=== PATIENT | male | born 1935 | race Caucasian/White ===

== ENCOUNTER 2017-04-29 22:34 | Inpatient (IN) | payer MEDICARE, OTHER ==
[~2017-04-29] VITALS: Ht 157.5 cm; Wt 58.5 kg
[2017-04-29] MEDS ORDERED: TELM40TA2 PO (22:47)
[2017-04-29] MEDS ORDERED: CLOP75TA15 PO (22:47)
[2017-04-29] MEDS ORDERED: ESOM40CA PO (22:47)
[2017-04-29] MEDS ORDERED: TAMS0.4C34 PO (22:47)
[2017-04-29] MEDS ORDERED: RANI300C PO (22:47)
[2017-04-29] MEDS ORDERED: PREG50CA PO (22:47)
[2017-04-29] MEDS ORDERED: ASPI-605 PO (22:47)
[2017-04-29] MEDS ORDERED: AMYL1CAP58 PO (22:47)
[2017-04-29] MEDS ORDERED: FINA5TAB11 PO (22:47)
[2017-04-29] MEDS ORDERED: CELE100C PO (22:47)
[2017-04-29] MEDS ORDERED: LEVO50TA PO (22:47)
[2017-04-29] MEDS ORDERED: METO-357 PO (22:47)
[2017-04-29 23:00] LABS: ABG BASE EXCESS 1.9 mmol/L; ABG OXYGEN SATURATION 86.9 % (92.0-98.5); ABG PCO2 28.2 mmHg (35.0-45.0); ABG PH 7.537 (7.350-7.450); ABG PO2 46.5 mmHg (75.0-100.0); COHb 0.8 % (0.5-1.5); MetHb 0.5 % (0.0-1.5); O2Hb 85.8 % (94.0-97.0); SITE, ABG LEFT ARM; VENT MODE, BG RA
[2017-04-29] MEDS ORDERED: LEVOFLOXACIN 750 MG /D5W 150ML 150 ML IV ONE ×2 (23:00→23:09)
[2017-04-29] MEDS ORDERED: IV NS 0.9% 500 ML BAG IV ONE (23:00)
[2017-04-29 23:37] LABS: BASOPHILS % (AUTO) 0.2 % (0.0-2.0); EOSINOPHILS # (AUTO) 0.1 /CMM (0.0-0.7); EOSINOPHILS % (AUTO) 1.5 % (0.0-6.0); HEMATOCRIT 39 % (39-51); LYMPHOCYTES # (AUTO) 0.7 /CMM (0.8-4.8); LYMPHOCYTES % (AUTO) 7.4 % (20.0-44.0); MEAN CORPUSCULAR HEMOGLOBIN 31 PG (26.0-33.0); MEAN CORPUSCULAR HGB CONC 33 g/dl (31.0-36.0); MEAN CORPUSCULAR VOLUME 93 fL (80-96); MONOCYTES # (AUTO) 0.8 /CMM (0.1-1.30); MONOCYTES % (AUTO) 8.6 % (2.0-12.0); NEUTROPHILS # (AUTO) 7.4 /CMM (1.8-8.9); NEUTROPHILS % (AUTO) 82.3 % (43.0-81.0); PLATELET COUNT (AUTO) 247 /CMM (150-450); RDW COEFFICIENT OF VARIATION 14.5 (11.5-15.0); RED BLOOD CELL COUNT(AUTO) 4.18 MIL/uL (4.5-6.0)
[2017-04-29 23:47] LABS: CALCIUM, SERUM 8.7 mg/dL (8.5-10.1); CARBON DIOXIDE 26 mmol/L (21-32); CHLORIDE 106 mmol/L (98-107); CREATININE 1.4 mg/dL (0.6-1.3); GLUCOSE 114 mg/dL (74-106); POTASSIUM 3.4 mmol/L (3.5-5.1); SODIUM SERUM 141 mmol/L (136-145); UREA NITROGEN, BLOOD 14 mg/dL (7-18)
[2017-04-29 23:49] LABS: SERUM AMMONIA 6 umol/L (11-32)
[2017-04-29 23:51] LABS: INR 1.09 (0.87-1.13); PROTHROMBIN TIME 11.3 SECS (9.5-12.7)
[2017-04-29 23:54] LABS: ACETAMINOPHEN 1 ug/ml (10-30); ALANINE AMINOTRANSFERASE 20 U/L (12-78); ALBUMIN 3.4 g/dL (3.4-5.0); ALCOHOL, BLOOD < 3 mg/dL (0-0); ALKALINE PHOSPHATASE 65 U/L (46-116); ASPARTATE AMINOTRANSFERASE 20 U/L (15-37); BILIRUBIN,DIRECT 0.2 mg/dL (0.0-0.2); BILIRUBIN,TOTAL 0.9 mg/dL (0.2-1.0); TROPONIN I 0.025 ng/mL (0.00-0.056)
[2017-04-30] MEDS ORDERED: ASPIRIN 81 MG TAB.CHEW ONE (00:23)
[2017-04-30] MEDS ORDERED: POTASSIUM CHLORIDE 20 MEQ TAB.PRT.SR PO ONE ×2 (00:23→00:30)
[2017-04-30 00:30] LABS: APPEARANCE,URINE CLOUDY (CLEAR); BILIRUBIN,URINE 1+ (NEGATIVE); BLOOD, URINE 3+ Ery/uL (NEGATIVE); COLOR,URINE DARK YELLO (YELLOW); KETONES,URINE 1+ (NEGATIVE); LEUKOCYTE ESTERASE ,URINE NEGATIVE (NEGATIVE); NITRITE, URINE NEGATIVE (NEGATIVE); PH,URINE 6.5 (5.0-8.0); PROTEIN,URINE 1+ mg/dl (NEGATIVE); UGLUCOSE NEGATIVE (NEGATIVE)
[2017-04-30] MEDS ORDERED: ASPIRIN 325 MG TABLET PO ONE (00:30)
[2017-04-30] MEDS ORDERED: IV NS 0.9% 1,000 ML BAG IV ONE (00:30)
[2017-04-30 00:41] LABS: BACTERIA,URINE None seen /HPF (None Seen); RBC,URINE TOO NUMEROUS TO COUN /HPF (0-2); SQUAMOUS EPITHELIAL CELL,UR Few /HPF (None Seen); WBC,URINE 0-2 /HPF (0-3)
[2017-04-30] MEDS ORDERED: OSELTAMIVIR PHOSPHATE 75 MG CAPSULE ONE (00:43)
[2017-04-30] MEDS ORDERED: MAGNESIUM HYDROXIDE 30 ML UDC PO PRN (01:00)
[2017-04-30] MEDS ORDERED: ENOXAPARIN SODIUM 40 MG/0.4 ML DISP.SYRIN SQ SCH ×2 (01:00→21:00)
[2017-04-30] MEDS ORDERED: ONDANSETRON HCL/PF 4 MG/2 ML VIAL IVP PRN (01:00)
[2017-04-30] MEDS ORDERED: HYDROCODONE/APAP 5/325MG 1 EACH TABLET PO PRN (01:00)
[2017-04-30] MEDS ORDERED: OSELTAMIVIR PHOSPHATE 75 MG CAPSULE PO SCH (01:00)
[2017-04-30] MEDS ORDERED: Z GUARD REMEDY 2 OZ OINT TP PRN (01:00)
[2017-04-30] MEDS ORDERED: LEVOFLOXACIN 750 MG /D5W 150ML 750 MG in PREMIX 1 EA IV SCH (01:00)
[2017-04-30] MEDS ORDERED: ZOLPIDEM TARTRATE 5 MG TABLET PO PRN (01:00)
[2017-04-30] MEDS ORDERED: MAG HYDROX/AL HYDROX/SIMETH 30 ML UDC PO PRN (01:00)
[2017-04-30] MEDS ORDERED: ENOXAPARIN SODIUM 40 MG/0.4 ML DISP.SYRIN SQ ONE (01:19)
[2017-04-30] MEDS ORDERED: ACETAMINOPHEN 325 MG TABLET ONE ×2 (01:22)
[2017-04-30] MEDS: ACETAMINOPHEN 325 MG TABLET PO PRN ×3 (01:35→16:09)
[2017-04-30] MEDS: IV NS 0.9% 1,000 ML IV PRN ×2 (02:00→23:40)
[2017-04-30 04:00] VITALS: BP 104/51
[2017-04-30 08:00] VITALS: BP 135/67
[2017-04-30] MEDS: OSELTAMIVIR PHOSPHATE 75 MG CAPSULE PO SCH ×2 (08:32→16:09)
[2017-04-30 12:00] VITALS: BP 132/57
[2017-04-30] MEDS ORDERED: FAMOTIDINE 40 MG TABLET PO SCH (14:00)
[2017-04-30 16:00] VITALS: BP 157/71
[2017-04-30] MEDS: TAMSULOSIN 0.4 MG CAP.SR.24H PO SCH (16:47)
[2017-04-30] MEDS: LOSARTAN POTASSIUM 25 MG TABLET PO SCH (16:47)
[2017-04-30 16:52] LABS: CALCIUM, SERUM 8.4 mg/dL (8.5-10.1); CARBON DIOXIDE 19 mmol/L (21-32); CHLORIDE 106 mmol/L (98-107); CREATININE 1.1 mg/dL (0.6-1.3); GLUCOSE 84 mg/dL (74-106); POTASSIUM 4.5 mmol/L (3.5-5.1); SODIUM SERUM 140 mmol/L (136-145); UREA NITROGEN, BLOOD 13 mg/dL (7-18)
[2017-04-30] MEDS: LIPASE/PROTEASE/AMYLASE 1 EACH CAPSULE.DR PO SCH (18:20)
[2017-04-30 19:45] LABS: BASOPHILS # (AUTO) 0.2 /CMM (0.0-0.2); BASOPHILS % (AUTO) 2.3 % (0.0-2.0); EOSINOPHILS % (AUTO) 0.6 % (0.0-6.0); HEMATOCRIT 33 % (39-51); HEMOGLOBIN 11.3 g/dL (13.5-17.5); LYMPHOCYTES # (AUTO) 0.6 /CMM (0.8-4.8); LYMPHOCYTES % (AUTO) 8.9 % (20.0-44.0); MEAN CORPUSCULAR HEMOGLOBIN 31 PG (26.0-33.0); MEAN CORPUSCULAR HGB CONC 34 g/dl (31.0-36.0); MEAN CORPUSCULAR VOLUME 91 fL (80-96); MONOCYTES # (AUTO) 0.8 /CMM (0.1-1.30); MONOCYTES % (AUTO) 10.6 % (2.0-12.0); NEUTROPHILS # (AUTO) 5.7 /CMM (1.8-8.9); NEUTROPHILS % (AUTO) 77.6 % (43.0-81.0); PLATELET COUNT (AUTO) 217 /CMM (150-450); RDW COEFFICIENT OF VARIATION 13.3 (11.5-15.0); WHITE BLOOD COUNT (AUTO) 7.3 K/uL (4.3-11.0)
[2017-04-30 20:00] VITALS: BP 93/55
[2017-04-30] MEDS ORDERED: ENOXAPARIN SODIUM 30 MG/0.3 ML DISP.SYRIN SQ SCH (21:00)
[2017-05-01] VITALS: BP 138/58
[2017-05-01] MEDS ORDERED: LEVOFLOXACIN 750 MG /D5W 150ML 750 MG in PREMIX 1 EA IV SCH ×2
[2017-05-01 04:00] VITALS: BP 122/60
[2017-05-01 07:17] LABS: CHOLESTEROL 112 mg/dL (<200); HDL CHOLESTEROL 47 mg/dL (40-60); LDL 56 mg/dL (0-99); THYROID STIMULATING HORMONE 1.395 uIU/mL (0.358-3.74); TRIGLYCERIDES 59 mg/dL (30-150)
[2017-05-01 07:21] LABS: BASOPHILS % (AUTO) 0.3 % (0.0-2.0); EOSINOPHILS # (AUTO) 0.2 /CMM (0.0-0.7); EOSINOPHILS % (AUTO) 2.5 % (0.0-6.0); HEMATOCRIT 35 % (39-51); LYMPHOCYTES # (AUTO) 0.8 /CMM (0.8-4.8); LYMPHOCYTES % (AUTO) 11.7 % (20.0-44.0); MEAN CORPUSCULAR HEMOGLOBIN 32 PG (26.0-33.0); MEAN CORPUSCULAR HGB CONC 34 g/dl (31.0-36.0); MEAN CORPUSCULAR VOLUME 94 fL (80-96); MONOCYTES # (AUTO) 0.8 /CMM (0.1-1.30); MONOCYTES % (AUTO) 11.1 % (2.0-12.0); NEUTROPHILS # (AUTO) 5.3 /CMM (1.8-8.9); NEUTROPHILS % (AUTO) 74.4 % (43.0-81.0); PLATELET COUNT (AUTO) 197 /CMM (150-450); RDW COEFFICIENT OF VARIATION 14.7 (11.5-15.0); RED BLOOD CELL COUNT(AUTO) 3.74 MIL/uL (4.5-6.0); WHITE BLOOD COUNT (AUTO) 7.1 K/uL (4.3-11.0)
[2017-05-01 07:36] LABS: CALCIUM, SERUM 7.9 mg/dL (8.5-10.1); CARBON DIOXIDE 21 mmol/L (21-32); CHLORIDE 105 mmol/L (98-107); CREATININE 1.1 mg/dL (0.6-1.3); GLUCOSE 95 mg/dL (74-106); MAGNESIUM 1.6 mg/dL (1.8-2.4); PHOSPHORUS 1.8 mg/dL (2.5-4.9); POTASSIUM 3.6 mmol/L (3.5-5.1); SODIUM SERUM 138 mmol/L (136-145); UREA NITROGEN, BLOOD 10 mg/dL (7-18)
[2017-05-01 08:00] VITALS: BP_SYST 150; BP_SYST 169; BP_DIAS 60; BP_DIAS 61
[2017-05-01] MEDS: LIPASE/PROTEASE/AMYLASE 1 EACH CAPSULE.DR PO SCH ×3 (08:03→17:11)
[2017-05-01] MEDS: LEVOTHYROXINE SODIUM 25 MCG TABLET PO SCH (08:03)
[2017-05-01] MEDS ORDERED: ASPIRIN EC 81 MG TABLET.DR PO SCH (09:00)
[2017-05-01] MEDS ORDERED: CLOPIDOGREL BISULFATE 75 MG TABLET PO SCH (09:00)
[2017-05-01] MEDS: FINASTERIDE (5 MG) 5 MG TABLET PO SCH (09:11)
[2017-05-01] MEDS: CELECOXIB 100 MG CAPSULE PO SCH (09:11)
[2017-05-01] MEDS: TAMSULOSIN 0.4 MG CAP.SR.24H PO SCH ×2 (09:11→17:11)
[2017-05-01] MEDS: FAMOTIDINE (20 MG) 20 MG TABLET PO SCH (09:12)
[2017-05-01] MEDS: METOPROLOL SUCCINATE 50 MG TAB.SR.24H PO SCH (09:12)
[2017-05-01] MEDS: PREGABALIN 25 MG CAPSULE PO SCH (09:12)
[2017-05-01] MEDS: OSELTAMIVIR PHOSPHATE 75 MG CAPSULE PO SCH ×2 (09:13→17:11)
[2017-05-01] MEDS: LOSARTAN POTASSIUM 25 MG TABLET PO SCH (09:13)
[2017-05-01] MEDS: Magnesium 1GM/D5W 100ML PREMIX 100 ML IV SCH ×2 (11:01→11:51)
[2017-05-01 12:00] VITALS: BP 136/67
[2017-05-01 16:00] VITALS: BP 118/60
[2017-05-01] MEDS: IV NS 0.9% 1,000 ML IV PRN (16:13)
[2017-05-01] MEDS ORDERED: K PHOS NEUTRAL 250 MG TABLET PO ONE (16:30)
[2017-05-01] MEDS ORDERED: NEUTRA PHOS 1 POWD.PACKET NG ONE (16:30)
[2017-05-01 20:00] VITALS: BP 122/71
[2017-05-02] VITALS: BP 129/69
[2017-05-02 04:00] VITALS: BP 129/69
[2017-05-02 06:34] LABS: CARBON DIOXIDE 23 mmol/L (21-32); CHLORIDE 111 mmol/L (98-107); CREATININE 1.1 mg/dL (0.6-1.3); GLUCOSE 115 mg/dL (74-106); POTASSIUM 3.4 mmol/L (3.5-5.1); SODIUM SERUM 141 mmol/L (136-145); UREA NITROGEN, BLOOD 8 mg/dL (7-18)
[2017-05-02 06:35] LABS: BASOPHILS % (AUTO) 0.4 % (0.0-2.0); EOSINOPHILS # (AUTO) 0.3 /CMM (0.0-0.7); EOSINOPHILS % (AUTO) 4.9 % (0.0-6.0); HEMATOCRIT 34 % (39-51); HEMOGLOBIN 11.3 g/dL (13.5-17.5); LYMPHOCYTES # (AUTO) 1.1 /CMM (0.8-4.8); LYMPHOCYTES % (AUTO) 19.1 % (20.0-44.0); MEAN CORPUSCULAR HEMOGLOBIN 32 PG (26.0-33.0); MEAN CORPUSCULAR HGB CONC 34 g/dl (31.0-36.0); MEAN CORPUSCULAR VOLUME 94 fL (80-96); MONOCYTES # (AUTO) 0.6 /CMM (0.1-1.30); MONOCYTES % (AUTO) 10.7 % (2.0-12.0); NEUTROPHILS # (AUTO) 3.7 /CMM (1.8-8.9); NEUTROPHILS % (AUTO) 64.9 % (43.0-81.0); PLATELET COUNT (AUTO) 201 /CMM (150-450); RDW COEFFICIENT OF VARIATION 14.5 (11.5-15.0); RED BLOOD CELL COUNT(AUTO) 3.59 MIL/uL (4.5-6.0); WHITE BLOOD COUNT (AUTO) 5.7 K/uL (4.3-11.0)
[2017-05-02 06:42] LABS: MAGNESIUM 2.3 mg/dL (1.8-2.4); PHOSPHORUS 2.3 mg/dL (2.5-4.9)
[2017-05-02 08:00] VITALS: BP 95/58
[2017-05-02 09:00] VITALS: BP 95/58
[2017-05-02] MEDS: CELECOXIB 100 MG CAPSULE PO SCH (09:00)
[2017-05-02] MEDS: METOPROLOL SUCCINATE 50 MG TAB.SR.24H PO SCH (09:00)
[2017-05-02] MEDS: LOSARTAN POTASSIUM 25 MG TABLET PO SCH (09:00)
[2017-05-02] MEDS: PREGABALIN 25 MG CAPSULE PO SCH (09:00)
[2017-05-02] MEDS: LEVOTHYROXINE SODIUM 25 MCG TABLET PO SCH (09:26)
[2017-05-02] MEDS: FINASTERIDE (5 MG) 5 MG TABLET PO SCH (09:26)
[2017-05-02] MEDS: FAMOTIDINE (20 MG) 20 MG TABLET PO SCH (09:26)
[2017-05-02] MEDS: LIPASE/PROTEASE/AMYLASE 1 EACH CAPSULE.DR PO SCH ×2 (09:26→12:13)
[2017-05-02] MEDS: TAMSULOSIN 0.4 MG CAP.SR.24H PO SCH ×2 (09:26→16:11)
[2017-05-02] MEDS: OSELTAMIVIR PHOSPHATE 75 MG CAPSULE PO SCH ×2 (09:26→16:11)
[2017-05-02] MEDS: POTASSIUM CHLORIDE 20 MEQ TAB.PRT.SR PO SCH ×2 (12:13→12:46)
[2017-05-02] MEDS: IV NS 0.9% 1,000 ML IV PRN (12:14)
[2017-05-02] MEDS ORDERED: NEUTRA PHOS 1 POWD.PACKET PO ONE (15:30)
[2017-05-02] MEDS ORDERED: LEVO750T46 PO (16:23)
[2017-05-02] MEDS ORDERED: OSEL75CA PO (16:23)
== END 2017-05-02 17:19 | disposition home or self-care (01) | DRG 871 ==
LOC: ER 22:37 → TELE1 23:28
DX: A41.9 Sepsis, unspecified organism (principal); J96.01 Acute respiratory failure with hypoxia; N17.0 Acute kidney failure with tubular necrosis; D63.8 Anemia in other chronic diseases classified elsewhere; E87.6 Hypokalemia; I10 Essential (primary) hypertension; I25.10 Atherosclerotic heart disease of native coronary artery without angina pectoris; N40.0 Benign prostatic hyperplasia without lower urinary tract symptoms; Z98.61 Coronary angioplasty status; J10.1 Influenza due to other identified influenza virus with other respiratory manifestations; N41.9 Inflammatory disease of prostate, unspecified; R65.20 Severe sepsis without septic shock
CPT/HCPCS: 36415; 36600; 70450-TC; 71010-TC; 80048-TC; 80061-TC; 80076-TC; 81000-TC; 82140-TC; 82962-TC; 83605-TC; 83735-TC; 84100-TC; 84439-TC; 84443-TC; 84484-TC; 85025-TC; 85730-TC; 87040-TC; 87081-TC; 87086-TC; 87400; A4216; A4606; G0480; J1650; J1956; J3475; J7030; J7040; Z7610